=== PATIENT | female | born 1985 | race Hispanic/Latino ===

== ENCOUNTER 2016-11-05 10:40 | Emergency (ER) | payer OTHER ==
[~2016-11-05] VITALS: Ht 165.1 cm; Wt 98.8 kg
[~2016-11-05 10:40] MED LIST: BACTRIM DS1 TAB PO; BCP PO; CEPHALEXIN500 MG PO; CIPROFLOXACN500 MG PO; LORTAB 5 OR; MULTIVITAMI9 PO; NAPROSYN500 MG PO; NITROFURANTN100 M2 PO; NO HOME MEDS; NO MEDS; SPRINTEC 2828 DAY PO; ULTRAM50 M1 PO; ZOFRAN ODT8 MG SL; ZOFRAN4 MG/TAB PO
[2016-11-05 11:22] LABS: URINE BILIRUBIN - DIPSTICK NEGATIVE (NEGATIVE); URINE BLOOD DIPSTICK NEGATIVE (NEGATIVE); URINE CLARITY CLEAR; URINE COLOR YELLOW; URINE GLUCOSE - DIPSTICK NEGATIVE (NEGATIVE); URINE KETONE TRACE mg/dL (NEGATIVE); URINE LEUK ESTERASE TRACE (NEGATIVE); URINE NITRITE - DIPSTICK NEGATIVE (Negative); URINE PROTEIN - DIPSTICK NEGATIVE (NEG-TRACE); URINE UROBILINOGEN - DIPSTICK 0.2 E.U./dL (0.2)
[2016-11-05 11:23] LABS: HEMATOCRIT 39.8 % (37.0-47.0); HEMOGLOBIN 12.9 g/dl (12.0-16.0); IMMATURE GRANULOCYTES 0.6 % (0.0-1.0); MEAN CELL VOLUME 81.4 fL CALC (80.0-100.0); MEAN CORPUSCULAR HGB 26.4 pG CALC (26.0-32.0); MEAN CORPUSCULAR HGB CONC 32.4 g/L CALC (32.0-36.0); NEUT# 7.22 thou/uL (2.00-7.15); RED BLOOD COUNT 4.89 mill/uL (4.20-5.60); RED CELL DISTRI WIDTH 16.3 % (11.5-15.5)
[2016-11-05 11:24] LABS: BARBITURATES NEGATIVE (NEGATIVE); COCAINE NEGATIVE (NEGATIVE); METHADONE NEGATIVE (NEGATIVE); OXCYCODONE NEGATIVE (NEGATIVE); TETRAHYDROCANNABIONOL NEGATIVE (NEGATIVE); TRICYLIC ANTIDEPRESSANTS NEGATIVE (NEGATIVE)
[2016-11-05 11:49] LABS: ALBUMIN 4.4 g/dL (3.2-5.0); ALKALINE PHOSPHATASE 104 u/l (38-126); ANION GAP 17 (6-22 (CALC)); BILIRUBIN, TOTAL 0.5 mg/dL (0.0-1.4); BUN 16 mg/dL (7-17); BUN/CREATININE RATIO 30 (12-20 (CALC)); CALCIUM 8.7 mg/dL (8.4-10.2); CARBON DIOXIDE 26 mmol/l (22-30); CHLORIDE 101 mmol/l (95-108); CREATININE 0.5 mg/dL (0.5-1.0); GFR > 60 ML/MIN (>=60 (CALC)); GFR FOR AFR.AMER. > 60 ML/MIN (>=60 (CALC)); GLUCOSE 107 mg/dL (65-105); POTASSIUM 3.6 mmol/l (3.5-5.1); SGOT/AST 26 u/l (14-36); SGPT/ALT 41 u/l (9-52); SODIUM 140 mmol/l (137-146); TOTAL PROTEIN 8.4 g/dL (6.3-8.2)
[2016-11-05] MEDS ORDERED: ANTIVERT PO (12:31)
[2016-11-05] MEDS ORDERED: ZOFRAN ODT4 MG PO (12:31)
[2016-11-05 13:44] VITALS: BP 109/75
== END 2016-11-05 14:58 | disposition home or self-care (01) | DRG 149 ==
LOC: ED 10:40
PROVIDERS: Emergency Medicine
DX: R42 Dizziness and giddiness (principal); R11.0 Nausea

== ENCOUNTER 2017-02-15 19:22 | Emergency (ER) | payer OTHER ==
[~2017-02-15] VITALS: Ht 165.1 cm; Wt 102.2 kg
[~2017-02-15 19:22] MED LIST changes: +ANTIVERT PO; +ZOFRAN ODT4 MG PO
[2017-02-15 20:11] LABS: URINE BILIRUBIN - DIPSTICK NEGATIVE (NEGATIVE); URINE BLOOD DIPSTICK MODERATE (NEGATIVE); URINE CLARITY CLEAR; URINE COLOR YELLOW; URINE GLUCOSE - DIPSTICK NEGATIVE (NEGATIVE); URINE KETONE NEGATIVE (NEGATIVE); URINE LEUK ESTERASE NEGATIVE (NEGATIVE); URINE NITRITE - DIPSTICK NEGATIVE (Negative); URINE PH 8.5 (4.5-8.0); URINE PROTEIN - DIPSTICK TRACE mg/dL (NEG-TRACE)
[2017-02-15 20:12] LABS: HEMOGLOBIN 11.5 g/dl (12.0-16.0); IMMATURE GRANULOCYTES 0.7 % (0.0-1.0); MEAN CELL VOLUME 83.5 fL CALC (80.0-100.0); MEAN CORPUSCULAR HGB 27.4 pG CALC (26.0-32.0); MEAN CORPUSCULAR HGB CONC 32.9 g/L CALC (32.0-36.0); NEUT# 8.99 thou/uL (2.00-7.15); RED BLOOD COUNT 4.19 mill/uL (4.20-5.60); RED CELL DISTRI WIDTH 15.3 % (11.5-15.5)
[2017-02-15 20:23] LABS: ALBUMIN 4.1 g/dL (3.2-5.0); ALKALINE PHOSPHATASE 68 u/l (38-126); AMYLASE 44 u/l (30-110); ANION GAP 16 (6-22 (CALC)); BILIRUBIN, TOTAL 0.3 mg/dL (0.0-1.4); BUN 11 mg/dL (7-17); BUN/CREATININE RATIO 20 (12-20 (CALC)); CALCIUM 8.8 mg/dL (8.4-10.2); CARBON DIOXIDE 27 mmol/l (22-30); CHLORIDE 102 mmol/l (95-108); CREATININE 0.5 mg/dL (0.5-1.0); GFR > 60 ML/MIN (>=60 (CALC)); GFR FOR AFR.AMER. > 60 ML/MIN (>=60 (CALC)); GLUCOSE 96 mg/dL (65-105); LIPASE 78 u/l (23-300); POTASSIUM 3.6 mmol/l (3.5-5.1); SGOT/AST 36 u/l (14-36); SGPT/ALT 51 u/l (9-52); SODIUM 142 mmol/l (137-146); TOTAL PROTEIN 7.7 g/dL (6.3-8.2)
[2017-02-15 20:25] LABS: URINE BACTERIA MODERATE hpf; URINE RBC 0-2 RBC/hpf (0-5); URINE WBC 0-2 WBC/hpf (0-5)
[2017-02-15 20:28] LABS: URINE AMORPH SEDIMENT FEW hpf (NONE-FEW)
[2017-02-15 20:30] LABS: MYOGLOBIN 93 ng/mL (0 - 62)
[2017-02-15] MEDS ORDERED: ZOFRAN ODT4 MG PO (21:27)
[2017-02-15 21:43] VITALS: BP 110/56
[2017-02-16] MEDS ORDERED: PRENATAL MULTI1 CAP PO (18:36)
== END 2017-02-15 21:43 | disposition home or self-care (01) | DRG 998 ==
LOC: ED 19:22
PROVIDERS: Emergency Medicine
DX: O26.899 Other specified pregnancy related conditions, unspecified trimester (principal); R10.84 Generalized abdominal pain

== ENCOUNTER 2017-02-16 17:00 | Emergency (ER) | payer OTHER ==
[~2017-02-16] VITALS: Ht 165.1 cm; Wt 115.0 kg
[2017-02-16 17:31] LABS: HEMATOCRIT 36.7 % (37.0-47.0); IMMATURE GRANULOCYTES 0.6 % (0.0-1.0); MEAN CELL VOLUME 84.2 fL CALC (80.0-100.0); MEAN CORPUSCULAR HGB 27.5 pG CALC (26.0-32.0); MEAN CORPUSCULAR HGB CONC 32.7 g/L CALC (32.0-36.0); NEUT# 8.82 thou/uL (2.00-7.15); RED BLOOD COUNT 4.36 mill/uL (4.20-5.60); RED CELL DISTRI WIDTH 15.5 % (11.5-15.5)
[2017-02-16 17:51] LABS: ALBUMIN 4.4 g/dL (3.2-5.0); ALKALINE PHOSPHATASE 68 u/l (38-126); ANION GAP 18 (6-22 (CALC)); BILIRUBIN, TOTAL 0.4 mg/dL (0.0-1.4); BUN 13 mg/dL (7-17); BUN/CREATININE RATIO 25 (12-20 (CALC)); CALCIUM 9.4 mg/dL (8.4-10.2); CARBON DIOXIDE 23 mmol/l (22-30); CHLORIDE 106 mmol/l (95-108); CREATININE 0.5 mg/dL (0.5-1.0); GFR > 60 ML/MIN (>=60 (CALC)); GFR FOR AFR.AMER. > 60 ML/MIN (>=60 (CALC)); GLUCOSE 95 mg/dL (65-105); POTASSIUM 3.8 mmol/l (3.5-5.1); SGOT/AST 34 u/l (14-36); SGPT/ALT 55 u/l (9-52); SODIUM 143 mmol/l (137-146); TOTAL PROTEIN 7.8 g/dL (6.3-8.2)
[2017-02-16 18:07] LABS: BETA-HCG, QUANT(RESULT NUMBER) 3983 mIU/mL
[2017-02-16] MEDS ORDERED: PRENATAL MULTI1 CAP PO (18:36)
[2017-02-16 19:05] VITALS: BP 134/55
== END 2017-02-16 19:05 | disposition home or self-care (01) | DRG 778 ==
LOC: ED 17:00
PROVIDERS: Emergency Medicine
DX: O20.0 Threatened abortion (principal); O34.80 Maternal care for other abnormalities of pelvic organs, unspecified trimester; N83.202 Unspecified ovarian cyst, left side; N83.201 Unspecified ovarian cyst, right side

== ENCOUNTER 2017-03-17 09:36 | Emergency (ER) | payer MEDICAID ==
[~2017-03-17] VITALS: Ht 165.1 cm; Wt 98.6 kg
[~2017-03-17 09:36] MED LIST changes: +PRENATAL MULTI1 CAP PO
[2017-03-17 10:24] LABS: HEMATOCRIT 38.6 % (37.0-47.0); HEMOGLOBIN 12.7 g/dl (12.0-16.0); IMMATURE GRANULOCYTES 0.5 % (0.0-1.0); MEAN CELL VOLUME 82.8 fL CALC (80.0-100.0); MEAN CORPUSCULAR HGB 27.3 pG CALC (26.0-32.0); MEAN CORPUSCULAR HGB CONC 32.9 g/L CALC (32.0-36.0); NEUT# 7.04 thou/uL (2.00-7.15); RED BLOOD COUNT 4.66 mill/uL (4.20-5.60); RED CELL DISTRI WIDTH 15.1 % (11.5-15.5); URINE BILIRUBIN - DIPSTICK NEGATIVE (NEGATIVE); URINE BLOOD DIPSTICK LARGE (NEGATIVE); URINE GLUCOSE - DIPSTICK NEGATIVE (NEGATIVE); URINE KETONE NEGATIVE (NEGATIVE); URINE LEUK ESTERASE TRACE (NEGATIVE); URINE NITRITE - DIPSTICK NEGATIVE (Negative); URINE PROTEIN - DIPSTICK 30 mg/dL (NEG-TRACE); URINE SPECIFIC GRAVITY 1.025
[2017-03-17 10:27] LABS: URINE CLARITY BLOODY; URINE COLOR RED; URINE EPITHELIAL CELLS FEW EPI/hpf (0-FEW); URINE RBC TNTC RBC/hpf (0-5); URINE WBC 0-2 WBC/hpf (0-5)
[2017-03-17 10:48] LABS: ALBUMIN 4.1 g/dL (3.2-5.0); ALKALINE PHOSPHATASE 73 u/l (38-126); ANION GAP 17 (6-22 (CALC)); BILIRUBIN, TOTAL 0.4 mg/dL (0.0-1.4); BUN 11 mg/dL (7-17); BUN/CREATININE RATIO 24 (12-20 (CALC)); CALCIUM 8.9 mg/dL (8.4-10.2); CARBON DIOXIDE 24 mmol/l (22-30); CHLORIDE 103 mmol/l (95-108); CREATININE 0.5 mg/dL (0.5-1.0); GFR > 60 ML/MIN (>=60 (CALC)); GFR FOR AFR.AMER. > 60 ML/MIN (>=60 (CALC)); GLUCOSE 91 mg/dL (65-105); POTASSIUM 3.7 mmol/l (3.5-5.1); SGOT/AST 26 u/l (14-36); SGPT/ALT 50 u/l (9-52); SODIUM 140 mmol/l (137-146); TOTAL PROTEIN 7.6 g/dL (6.3-8.2)
[2017-03-17 11:04] LABS: BETA-HCG, QUANT(RESULT NUMBER) 6354 mIU/mL
[2017-03-17 13:59] VITALS: BP 97/64
[2017-03-18] MEDS ORDERED: ULTRAM50 M1 PO (03:40)
== END 2017-03-17 14:00 | disposition home or self-care (01) | DRG 782 ==
LOC: ED 09:36
PROVIDERS: Emergency Medicine
DX: O26.851 Spotting complicating pregnancy, first trimester (principal); Z3A.01 Less than 8 weeks gestation of pregnancy

== ENCOUNTER 2017-03-18 01:57 | Emergency (ER) | payer MEDICAID ==
[~2017-03-18] VITALS: Ht 165.1 cm; Wt 98.8 kg
[2017-03-18 02:50] LABS: HEMATOCRIT 39.9 % (37.0-47.0); HEMOGLOBIN 13.1 g/dl (12.0-16.0); IMMATURE GRANULOCYTES 0.3 % (0.0-1.0); MEAN CORPUSCULAR HGB 27.2 pG CALC (26.0-32.0); MEAN CORPUSCULAR HGB CONC 32.8 g/L CALC (32.0-36.0); NEUT# 6.42 thou/uL (2.00-7.15); RED BLOOD COUNT 4.81 mill/uL (4.20-5.60)
[2017-03-18 03:07] LABS: ALBUMIN 4.1 g/dL (3.2-5.0); ALKALINE PHOSPHATASE 72 u/l (38-126); ANION GAP 17 (6-22 (CALC)); BILIRUBIN, TOTAL 0.4 mg/dL (0.0-1.4); BUN 12 mg/dL (7-17); BUN/CREATININE RATIO 23 (12-20 (CALC)); CALCIUM 8.9 mg/dL (8.4-10.2); CARBON DIOXIDE 24 mmol/l (22-30); CHLORIDE 104 mmol/l (95-108); CREATININE 0.5 mg/dL (0.5-1.0); GFR > 60 ML/MIN (>=60 (CALC)); GFR FOR AFR.AMER. > 60 ML/MIN (>=60 (CALC)); GLUCOSE 97 mg/dL (65-105); POTASSIUM 3.9 mmol/l (3.5-5.1); SGOT/AST 29 u/l (14-36); SGPT/ALT 46 u/l (9-52); SODIUM 141 mmol/l (137-146); TOTAL PROTEIN 7.5 g/dL (6.3-8.2)
[2017-03-18 03:24] LABS: BETA-HCG, QUANT(RESULT NUMBER) 5542 mIU/mL
[2017-03-18] MEDS ORDERED: ULTRAM50 M1 PO (03:40)
[2017-03-18 04:04] VITALS: BP 106/65
== END 2017-03-18 04:03 | disposition home or self-care (01) | DRG 779 ==
LOC: ED 01:57
PROVIDERS: Emergency Medicine
DX: O03.9 Complete or unspecified spontaneous abortion without complication (principal)

== ENCOUNTER 2017-03-21 15:09 | Observation (INO) | payer MEDICAID ==
[~2017-03-21] VITALS: Ht 165.1 cm; Wt 68.0 kg
[2017-03-21] VITALS (8 sets, daily range): BP systolic 90–121; BP diastolic 41–73
[2017-03-21 16:22] LABS: HEMATOCRIT 35.9 % (37.0-47.0); HEMOGLOBIN 11.9 g/dl (12.0-16.0); IMMATURE GRANULOCYTES 0.2 % (0.0-1.0); MEAN CELL VOLUME 83.3 fL CALC (80.0-100.0); MEAN CORPUSCULAR HGB 27.6 pG CALC (26.0-32.0); MEAN CORPUSCULAR HGB CONC 33.1 g/L CALC (32.0-36.0); NEUT# 7.47 thou/uL (2.00-7.15); RED BLOOD COUNT 4.31 mill/uL (4.20-5.60); RED CELL DISTRI WIDTH 14.8 % (11.5-15.5)
[2017-03-21 16:53] LABS: URINE BILIRUBIN - DIPSTICK NEGATIVE (NEGATIVE); URINE BLOOD DIPSTICK LARGE (NEGATIVE); URINE GLUCOSE - DIPSTICK NEGATIVE (NEGATIVE); URINE KETONE NEGATIVE (NEGATIVE); URINE LEUK ESTERASE TRACE (NEGATIVE); URINE NITRITE - DIPSTICK NEGATIVE (Negative); URINE PH 8.5 (4.5-8.0); URINE PROTEIN - DIPSTICK 100 mg/dL (NEG-TRACE)
[2017-03-21 16:54] LABS: URINE CLARITY CLOUDY; URINE COLOR RED
[2017-03-21 17:08] LABS: URINE RBC TNTC RBC/hpf (0-5); URINE SQUAMOUS EPITHELIAL CELL FEW EPI/hpf (0-FEW)
[2017-03-21 22:35] LABS: HEMATOCRIT 36.4 % (37.0-47.0); HEMOGLOBIN 11.9 g/dl (12.0-16.0)
[2017-03-22 05:05] VITALS: BP 99/63
[2017-03-22] MEDS ORDERED: LORTAB 7.5-3251 TAB PO (08:35)
[2017-03-22] MEDS ORDERED: DOXY-CAPS100 MG PO (08:36)
[2017-03-22] MEDS ORDERED: CYTOTEC200 MCG PO (08:38)
[2017-03-22 08:46] VITALS: BP 114/54
== END 2017-03-22 10:42 | disposition home or self-care (01) | DRG 770 ==
LOC: ENPENDDIS → ED 15:09 → ED-I 17:43 → ED 18:19 → MS2 18:20
PROVIDERS: Emergency Medicine; ADMIT Obstetrics & Gynecology; ATTEND Obstetrics & Gynecology
PROC: 10D17ZZ Extraction of Products of Conception, Retained, Via Natural or Artificial Opening (ICD-10-PCS; principal; 2017-03-21)
DX: O03.4 Incomplete spontaneous abortion without complication (principal)
CPT/HCPCS: G0378

== ENCOUNTER 2017-04-28 02:40 | Emergency (ER) | payer MEDICAID ==
[~2017-04-28] VITALS: Ht 165.1 cm; Wt 99.6 kg
[~2017-04-28 02:40] MED LIST changes: +CYTOTEC200 MCG PO; +DOXY-CAPS100 MG PO; +LORTAB 7.5-3251 TAB PO
[2017-04-28] MEDS ORDERED: FIORICET PO (03:50)
[2017-04-28] MEDS ORDERED: AMOXICILLIN500 MG PO (03:50)
[2017-04-28 04:10] VITALS: BP 114/76
== END 2017-04-28 04:12 | disposition home or self-care (01) | DRG 153 ==
LOC: ED 02:40
DX: J02.0 Streptococcal pharyngitis (principal); R51 Headache

== ENCOUNTER 2017-08-11 13:55 | Emergency (ER) | payer SELFPAY ==
[~2017-08-11] VITALS: Ht 165.1 cm; Wt 91.0 kg
[~2017-08-11 13:55] MED LIST changes: +AMOXICILLIN500 MG PO; +FIORICET PO
[2017-08-11 15:02] LABS: HEMATOCRIT 38.4 % (37.0-47.0); HEMOGLOBIN 12.9 g/dl (12.0-16.0); IMMATURE GRANULOCYTES 0.4 % (0.0-1.0); MEAN CELL VOLUME 85.3 fL CALC (80.0-100.0); MEAN CORPUSCULAR HGB 28.7 pG CALC (26.0-32.0); MEAN CORPUSCULAR HGB CONC 33.6 g/L CALC (32.0-36.0); NEUT# 5.33 thou/uL (2.00-7.15); RED BLOOD COUNT 4.5 mill/uL (4.20-5.60); RED CELL DISTRI WIDTH 14.2 % (11.5-15.5)
[2017-08-11 15:14] LABS: INFLUENZA A NONE DETECTED (NONE DETECT); INFLUENZA B NONE DETECTED (NONE DETECT)
[2017-08-11 15:22] LABS: ALBUMIN 4.3 g/dL (3.2-5.0); ALKALINE PHOSPHATASE 88 u/l (38-126); ANION GAP 18 (6-22 (CALC)); BILIRUBIN, TOTAL 0.4 mg/dL (0.0-1.4); BUN 12 mg/dL (7-17); BUN/CREATININE RATIO 22 (12-20 (CALC)); CALCIUM 9.2 mg/dL (8.4-10.2); CARBON DIOXIDE 24 mmol/l (22-30); CHLORIDE 104 mmol/l (95-108); CREATININE 0.5 mg/dL (0.5-1.0); GFR > 60 ML/MIN (>=60 (CALC)); GFR FOR AFR.AMER. > 60 ML/MIN (>=60 (CALC)); GLUCOSE 105 mg/dL (65-105); POTASSIUM 3.6 mmol/l (3.5-5.1); SGOT/AST 34 u/l (14-36); SGPT/ALT 45 u/l (9-52); SODIUM 143 mmol/l (137-146); TOTAL PROTEIN 7.5 g/dL (6.3-8.2)
[2017-08-11] MEDS ORDERED: AMOXICILLIN500 M2 PO (16:08)
[2017-08-11 16:32] VITALS: BP 120/78
== END 2017-08-11 17:07 | disposition home or self-care (01) | DRG 153 ==
LOC: ED 13:55
PROVIDERS: Emergency Medicine
DX: J02.0 Streptococcal pharyngitis (principal)

== ENCOUNTER 2017-11-06 22:26 | Emergency (ER) | payer SELFPAY ==
[~2017-11-06] VITALS: Ht 165.1 cm; Wt 100.0 kg
[~2017-11-06 22:26] MED LIST changes: +AMOXICILLIN500 M2 PO
[2017-11-06] MEDS ORDERED: AMOXICILLIN500 MG PO (23:21)
[2017-11-06 23:33] VITALS: BP 114/71
== END 2017-11-06 23:31 | disposition home or self-care (01) | DRG 601 ==
LOC: ED 22:26
DX: N61.0 Mastitis without abscess (principal)

== ENCOUNTER 2018-09-22 09:01 | Emergency (ER) | payer SELFPAY ==
[~2018-09-22] VITALS: Ht 165.1 cm; Wt 110.0 kg
[~2018-09-22 09:01] MED LIST changes: +CEPHALEXIN500 M1 PO; +MEDROXYPR AC10 M1 PO
[2018-09-22] MEDS ORDERED: LEVAQUIN750 M1 PO (09:34)
[2018-09-22] MEDS ORDERED: CEPHALEXIN500 M1 PO (09:34)
[2018-09-22 10:01] VITALS: BP 120/65
== END 2018-09-22 10:05 | disposition home or self-care (01) | DRG 605 ==
LOC: ED 09:01
DX: S91.331A Puncture wound without foreign body, right foot, initial encounter (principal); W45.0XXA Nail entering through skin, initial encounter; Y93.K9 Activity, other involving animal care; Y92.009 Unspecified place in unspecified non-institutional (private) residence as the place of occurrence of the external cause

== ENCOUNTER 2019-09-16 | Emergency (ER) | payer SELFPAY ==
[~2019-09-16] MED LIST changes: +FLEXERIL5 MG PO; +LEVAQUIN750 M1 PO
[2019-09-16 12:38] LABS: HEMOGLOBIN 12.4 g/dl (12.0-16.0); IMMATURE GRANULOCYTES 0.3 % (0.0-5.0); MEAN CORPUSCULAR HGB 29.3 pG CALC (26.0-32.0); MEAN CORPUSCULAR HGB CONC 33.5 g/L CALC (32.0-36.0); NEUT# 5.96 thou/uL (2.00-7.15); RED BLOOD COUNT 4.23 mill/uL (4.20-5.60); RED CELL DISTRI WIDTH 13.6 % (11.5-15.5)
[2019-09-16 12:42] LABS: MEAN CELL VOLUME 87.5 fL CALC (80.0-100.0)
[2019-09-16 12:46] LABS: URINE BILIRUBIN - DIPSTICK NEGATIVE (NEGATIVE); URINE BLOOD DIPSTICK LARGE (NEGATIVE); URINE GLUCOSE - DIPSTICK NEGATIVE (NEGATIVE); URINE KETONE TRACE mg/dL (NEGATIVE); URINE PROTEIN - DIPSTICK 100 mg/dL (NEG-TRACE)
[2019-09-16 12:48] LABS: URINE COLOR RED; URINE LEUK ESTERASE SMALL (NEGATIVE); URINE NITRITE - DIPSTICK POSITIVE (Negative)
[2019-09-16 12:49] LABS: URINE BACTERIA FEW hpf; URINE EPITHELIAL CELLS FEW EPI/hpf (0-FEW); URINE RBC >100 RBC/hpf (0-5); URINE WBC 0-2 WBC/hpf (0-5)
[2019-09-16 12:54] LABS: ALKALINE PHOSPHATASE 88 u/l (38-126); ANION GAP 12 (6-22 (CALC)); BUN 13 mg/dL (7-17); BUN/CREATININE RATIO 30 (12-20 (CALC)); CARBON DIOXIDE 27 mmol/l (22-30); CHLORIDE 103 mmol/l (95-108); CREATININE 0.4 mg/dL (0.5-1.0); GFR > 60 ML/MIN (>=60 (CALC)); GFR FOR AFR.AMER. > 60 ML/MIN (>=60 (CALC)); POTASSIUM 3.7 mmol/l (3.5-5.1); SGOT/AST 42 u/l (14-36); SODIUM 138 mmol/l (137-146); TOTAL PROTEIN 7.8 g/dL (6.3-8.2)
[2019-09-16 13:11] LABS: BILIRUBIN, TOTAL 0.6 mg/dL (0.0-1.4)
[2019-09-16] MEDS ORDERED: PROVERA10 MG PO (13:42)
[2019-09-16] MEDS ORDERED: KEFLEX500 M1 PO (13:44)
== END 2019-09-16 13:58 | disposition home or self-care (01) | DRG 760 ==
DX: N93.8 Other specified abnormal uterine and vaginal bleeding (principal); N39.0 Urinary tract infection, site not specified

== ENCOUNTER 2020-08-22 16:58 | Emergency (ER) | payer SELFPAY ==
[~2020-08-22] VITALS: Ht 165.1 cm; Wt 100.0 kg
[~2020-08-22 16:58] MED LIST changes: +KEFLEX500 M1 PO; +PROVERA10 MG PO
[2020-08-22 18:04] LABS: HEMATOCRIT 38.2 % (37.0-47.0); HEMOGLOBIN 12.5 g/dl (12.0-16.0); IMMATURE GRANULOCYTES 0.4 % (0.0-5.0); MEAN CELL VOLUME 88.2 fL CALC (80.0-100.0); MEAN CORPUSCULAR HGB 28.9 pG CALC (26.0-32.0); MEAN CORPUSCULAR HGB CONC 32.7 g/dL CAL (32.0-36.0); NEUT# 7.59 thou/uL (2.00-7.15); RED BLOOD COUNT 4.33 mill/uL (4.20-5.60); RED CELL DISTRI WIDTH 13.8 % (11.5-15.5)
[2020-08-22 18:37] LABS: ALBUMIN 3.9 g/dL (3.2-5.0); ALKALINE PHOSPHATASE 81 u/l (38-126); ANION GAP 12 (6-22 (CALC)); BUN 14 mg/dL (7-17); BUN/CREATININE RATIO 22 (12-20 (CALC)); CARBON DIOXIDE 27 mmol/l (22-30); CHLORIDE 106 mmol/l (95-108); CREATININE 0.6 mg/dL (0.5-1.0); GFR > 60 ML/MIN (>=60 (CALC)); GFR FOR AFR.AMER. > 60 ML/MIN (>=60 (CALC)); POTASSIUM 3.5 mmol/l (3.5-5.1); SGOT/AST 27 u/l (14-36); SODIUM 141 mmol/l (137-146); TOTAL PROTEIN 7.2 g/dL (6.3-8.2)
[2020-08-22 18:40] LABS: BILIRUBIN, TOTAL 0.3 mg/dL (0.0-1.4)
[2020-08-22 20:30] VITALS: BP 122/72
== END 2020-08-22 20:30 | disposition home or self-care (01) | DRG 761 ==
LOC: ED 16:58
PROVIDERS: Family Medicine
DX: N93.8 Other specified abnormal uterine and vaginal bleeding (principal); N83.292 Other ovarian cyst, left side

== ENCOUNTER 2021-04-11 18:48 | Emergency (ER) | payer BC ==
[~2021-04-11] VITALS: Ht 157.5 cm; Wt 68.0 kg
[2021-04-11] MEDS ORDERED: ULTRAM50 M1 PO (20:00)
[2021-04-11] MEDS ORDERED: AMOXICILLIN500 MG PO (20:00)
[2021-04-11 20:33] VITALS: BP 148/78
== END 2021-04-11 20:33 | disposition home or self-care (01) | DRG 158 ==
LOC: ED 18:48
DX: K04.7 Periapical abscess without sinus (principal); M84.68XA Pathological fracture in other disease, other site, initial encounter for fracture

== ENCOUNTER 2021-11-15 01:10 | Emergency (ER) | payer BC ==
[~2021-11-15] VITALS: Ht 157.5 cm; Wt 68.0 kg
[2021-11-15 01:28] VITALS: BP 115/70
[2021-11-15 01:31] VITALS: BP 120/67
[2021-11-15] MEDS ORDERED: AMOXICILLIN500 MG PO (01:35)
[2021-11-15] MEDS ORDERED: TRAMADOL HCL50 MG PO (01:35)
[2021-11-15] MEDS ORDERED: MOTRIN800 MG PO (01:35)
[2021-11-15 02:00] VITALS: BP 115/63
== END 2021-11-15 02:05 | disposition home or self-care (01) | DRG 159 ==
LOC: ED 01:10
DX: K04.7 Periapical abscess without sinus (principal)

== ENCOUNTER 2022-03-05 16:41 | Emergency (ER) | payer BC ==
[~2022-03-05] VITALS: Ht 157.5 cm; Wt 95.0 kg
[~2022-03-05 16:41] MED LIST changes: +MOTRIN800 MG PO; +TRAMADOL HCL50 MG PO
[2022-03-05 16:53] VITALS: BP 154/99
[2022-03-05 17:00] VITALS: BP 140/79
[2022-03-05 17:15] VITALS: BP 130/77
[2022-03-05] MEDS ORDERED: TRAMADOL HCL50 MG PO (17:29)
[2022-03-05] MEDS ORDERED: NAPROXEN500 MG PO (17:29)
[2022-03-05] MEDS ORDERED: PENICILLN VK500 MG PO (17:29)
[2022-03-05 17:30] VITALS: BP 139/73
== END 2022-03-05 17:50 | disposition home or self-care (01) | DRG 159 ==
LOC: ED 16:41
DX: K04.7 Periapical abscess without sinus (principal); K02.9 Dental caries, unspecified

== ENCOUNTER 2022-04-02 06:14 | Emergency (ER) | payer BC ==
[~2022-04-02] VITALS: Ht 157.5 cm; Wt 86.4 kg
[2022-04-02] VITALS (17 sets, daily range): BP systolic 76–115; BP diastolic 42–76
[~2022-04-02 06:14] MED LIST changes: +NAPROXEN500 MG PO; +PENICILLN VK500 MG PO
[2022-04-02 08:10] LABS: HEMATOCRIT 36.9 % (37.0-47.0); HEMOGLOBIN 12.2 g/dl (12.0-16.0); IMMATURE GRANULOCYTES 0.2 % (0.0-5.0); MEAN CELL VOLUME 88.1 fL CALC (80.0-100.0); MEAN CORPUSCULAR HGB 29.1 pG CALC (26.0-32.0); MEAN CORPUSCULAR HGB CONC 33.1 g/dL CAL (32.0-36.0); NEUT# 7.86 thou/uL (2.00-7.15); RED BLOOD COUNT 4.19 mill/uL (4.20-5.60); RED CELL DISTRI WIDTH 13.7 % (11.5-15.5)
[2022-04-02 08:11] LABS: URINE BILIRUBIN - DIPSTICK NEGATIVE (NEGATIVE); URINE BLOOD DIPSTICK TRACE-INTACT (NEGATIVE); URINE COLOR YELLOW; URINE GLUCOSE - DIPSTICK NEGATIVE (NEGATIVE); URINE KETONE TRACE mg/dL (NEGATIVE); URINE LEUK ESTERASE TRACE (NEGATIVE); URINE PROTEIN - DIPSTICK NEGATIVE (NEG-TRACE); URINE SPECIFIC GRAVITY >=1.030; URINE UROBILINOGEN - DIPSTICK 0.2 E.U./dL (0.2)
[2022-04-02 08:12] LABS: ALBUMIN 3.8 g/dL (3.2-5.0); ALKALINE PHOSPHATASE 88 u/l (38-126); AMYLASE 62 u/l (30-110); ANION GAP 11 (6-22 (CALC)); BILIRUBIN, TOTAL 0.3 mg/dL (0.0-1.4); BUN 18 mg/dL (7-17); BUN/CREATININE RATIO 35 (12-20 (CALC)); CARBON DIOXIDE 27 mmol/l (22-30); CHLORIDE 104 mmol/l (95-108); CREATININE 0.5 mg/dL (0.5-1.0); GFR FOR AFR.AMER. > 60 ML/MIN (>=60 (CALC)); GFR OTHER RACES > 60 ML/MIN (>=60 (CALC)); LIPASE 61 u/l (23-300); SODIUM 137 mmol/l (137-146); TOTAL PROTEIN 7.4 g/dL (6.3-8.2)
[2022-04-02 08:13] LABS: SGOT/AST 54 u/l (14-36); URINE NITRITE - DIPSTICK NEGATIVE (Negative)
[2022-04-02 08:14] LABS: HCG SERUM/URINE (NEG/POS) NEGATIVE (NEGATIVE)
[2022-04-02 08:21] LABS: MYOGLOBIN 30 ng/mL (0 - 62)
[2022-04-02] MEDS ORDERED: PROTONIX40 M2 PO (11:04)
== END 2022-04-02 11:14 | disposition home or self-care (01) | DRG 392 ==
LOC: ED 06:14
PROVIDERS: Emergency Medicine
DX: R10.13 Epigastric pain (principal); M54.50 Low back pain, unspecified; Z20.822 Contact with and (suspected) exposure to COVID-19
CPT/HCPCS: Q9967

== ENCOUNTER 2023-02-02 11:38 | Emergency (ER) | payer BC ==
[2023-02-02] VITALS (15 sets, daily range): BP systolic 91–152; BP diastolic 48–93
[~2023-02-02] VITALS: Ht 157.5 cm; Wt 100.0 kg
[~2023-02-02 11:38] MED LIST changes: +PROTONIX40 M2 PO
[2023-02-02 12:37] LABS: BASO% 0.2 % (0-3); EOS% 2.1 % (0-8); HEMATOCRIT 32.2 % (37.0-47.0); IMMATURE GRANULOCYTES 0.4 % (0.0-5.0); LYMPH% 21.5 % (15-41); MEAN CORPUSCULAR HGB 22.1 pG CALC (26.0-32.0); MEAN CORPUSCULAR HGB CONC 29.5 g/dL CAL (32.0-36.0); MONO% 4.5 % (2-13); NEUT# 7.33 thou/uL (2.00-7.15); NEUT% 71.3 % (42-76); RED BLOOD COUNT 4.29 mill/uL (4.20-5.60); RED CELL DISTRI WIDTH 27.1 % (11.5-15.5)
[2023-02-02 12:37] LABS: URINE BILIRUBIN - DIPSTICK NEGATIVE (NEGATIVE); URINE BLOOD DIPSTICK NEGATIVE (NEGATIVE); URINE COLOR YELLOW; URINE GLUCOSE - DIPSTICK NEGATIVE (NEGATIVE); URINE KETONE NEGATIVE (NEGATIVE); URINE LEUK ESTERASE NEGATIVE (NEGATIVE); URINE PROTEIN - DIPSTICK NEGATIVE (NEG-TRACE); URINE SPECIFIC GRAVITY >=1.030; URINE UROBILINOGEN - DIPSTICK 0.2 E.U./dL (0.2)
[2023-02-02 12:40] LABS: HEMOGLOBIN 9.5 g/dl (12.0-16.0); MEAN CELL VOLUME 75.1 fL CALC (80.0-100.0)
[2023-02-02 12:46] LABS: URINE NITRITE - DIPSTICK NEGATIVE (Negative)
[2023-02-02 13:10] LABS: ALBUMIN 4.2 g/dL (3.2-5.0); ALKALINE PHOSPHATASE 87 u/l (38-126); ANION GAP 13 (6-22 (CALC)); BILIRUBIN, TOTAL 0.4 mg/dL (0.02-1.3); BUN 15 mg/dL (7-17); BUN/CREATININE RATIO 30 (12-20 (CALC)); CARBON DIOXIDE 22 mmol/l (22-30); CHLORIDE 106 mmol/l (95-108); CREATININE 0.5 mg/dL (0.5-1.0); GFR FOR AFR.AMER. > 60 ML/MIN (>=60 (CALC)); GFR OTHER RACES > 60 ML/MIN (>=60 (CALC)); LIPASE 50 u/l (23-300); POTASSIUM 3.9 mmol/l (3.5-5.1); SGOT/AST 87 u/l (14-36); SODIUM 137 mmol/l (137-146); TOTAL PROTEIN 8.1 g/dL (6.3-8.2)
== END 2023-02-02 15:45 | disposition home or self-care (01) | DRG 392 ==
LOC: ED 11:38
PROVIDERS: Family Medicine
DX: R10.13 Epigastric pain (principal)
CPT/HCPCS: Q9967

== ENCOUNTER 2024-02-15 21:05 | Emergency (ER) | payer OTHER ==
[~2024-02-15] VITALS: Ht 157.5 cm; Wt 68.0 kg
[2024-02-15 21:16] VITALS: BP 124/77
[2024-02-15] MEDS ORDERED: SULFAMETHOXAZOLE W/TRIMETHOPRI 1 COMBO TAB PO ONE (21:35)
[2024-02-15] MEDS ORDERED: BACTRIM DS1 TAB PO (21:40)
== END 2024-02-15 21:59 | disposition home or self-care (01) | DRG 601 ==
LOC: ED 21:05
DX: N61.0 Mastitis without abscess (principal)

== ENCOUNTER 2024-02-18 22:45 | Emergency (ER) | payer OTHER ==
[~2024-02-18] VITALS: Ht 157.5 cm; Wt 68.0 kg
[2024-02-19 00:02] VITALS: BP 110/60
[2024-02-19] MEDS ORDERED: LIDOcaine HCl 1% (Local Anesth.) 20 ML VIAL IM STA (00:29)
[2024-02-19] MEDS ORDERED: cefTRIAXone SODIUM 2 GM/VIAL SDV IM ONE (00:30)
[2024-02-19] MEDS ORDERED: oxyCODONE 5MG/ ACETAMINOPHEN 325MG TAB PO ONE (00:30)
[2024-02-19] MEDS ORDERED: ONDANSETRON 4 MG/TAB ODT SL ONE (00:30)
[2024-02-19] MEDS ORDERED: KETOROLAC TROMETHAMINE 30 MG/ML SDV IM ONE (00:30)
[2024-02-19] MEDS ORDERED: OMNI-PAC300 MG PO (00:40)
[2024-02-19] MEDS ORDERED: PERCOCET 5/325M1 TAB PO (00:40)
[2024-02-19] MEDS ORDERED: NAPROXEN500 MG PO (00:40)
[2024-02-19] MEDS ORDERED: ZOFRAN4 MG/TAB PO (00:40)
== END 2024-02-19 01:25 | disposition home or self-care (01) | DRG 601 ==
LOC: ED 22:45
DX: N64.4 Mastodynia (principal); R23.9 Unspecified skin changes